=== PATIENT | female | born 1945 | race Caucasian/White ===

== ENCOUNTER → 2017-01-08 16:47 | Outpatient (CLI) | payer MEDICARE ==
[2015-02-14 05:51] VITALS: BMI 28.0
[~2017-01-08 16:47] MED LIST: ASPIRIN EC81 M1 PO; CARBO/LEVO; CITRACAL + D E1 EACH PO; CO Q-10200 MG PO; FOLATE0.4 MG PO; LOVAZA1 G PO; MIRAPEX1.5 MG PO; PRILOSEC20 MG PO; VITAMIN B COMPL1 TAB PO; VITAMIN D250000 UNIT PO; WELLBUTRIN SR150 MG PO; ZOCOR40 MG PO
== END | disposition home or self-care (01) ==
LOC: D.MAMMO 01-07 09:45
DX: Z12.31 Encounter for screening mammogram for malignant neoplasm of breast (principal)

== ENCOUNTER → 2017-02-05 17:05 | Outpatient (CLI) | payer MEDICARE ==
[2015-02-14 05:51] VITALS: BMI 28.0
== END | disposition home or self-care (01) ==
LOC: D.MAMMO 14:00
DX: R92.8 Other abnormal and inconclusive findings on diagnostic imaging of breast (principal)

== ENCOUNTER → 2018-01-27 20:56 | Outpatient (CLI) | payer MEDICARE ==
[2015-02-14 05:51] VITALS: BMI 28.0
== END | disposition home or self-care (01) ==
LOC: D.MAMMO 10:45
DX: Z12.31 Encounter for screening mammogram for malignant neoplasm of breast (principal)

== ENCOUNTER 2019-08-09 08:00 | Outpatient (CLI) | payer MEDICARE ==
[2015-02-14 05:51] VITALS: BMI 28.0
== END 2019-08-09 23:59 | disposition home or self-care (01) ==
LOC: D.MAMMO 08:00
PROVIDERS: ATTEND Family Medicine
DX: Z12.31 Encounter for screening mammogram for malignant neoplasm of breast (principal)

== ENCOUNTER → 2019-09-08 11:42 | Outpatient (CLI) | payer MEDICARE ==
[2015-02-14 05:51] VITALS: BMI 28.0
--- NOTE | 2019-09-20 08:48 | ST ---
PATIENT:BRIAN FUNG MEDICAL RECORD: [id number] SEX: F LOCATION:[facility] ORDER #: ADMISSION DATE: 09/08/19 AGE OF PATIENT: 74 REFERRING PHYSICIAN: INTERPRETING PHYSICIAN: MARYSE LR MD DATE OF SERVICE: 09/08/2019 Baseline ECG is normal. Exercised for 6 minutes on Aurelio protocol. Maximum heart rate 135 beats per minute, greater than 85% maximum predicted. No ECG changes for ischemia. No symptoms of ischemia. Normal blood pressure response to exercise. No arrhythmias noted. Good exercise tolerance for age. TRANSINT:[id number] Voice Confirmation ID: [id number] DOCUMENT ID: [id number] MRAYSE LR MD at 0848 CC: [id number] DICTATION DATE: 09/15/191400 CLAIM CLERK: 09/15/192054 DEP CLI 09/08/19 [id number] [place] [address]
== END | disposition home or self-care (01) ==
LOC: D.HCCARDIO 11:42
PROVIDERS: ATTEND Internal Medicine Interventional Cardiology
DX: I20.9 Angina pectoris, unspecified (principal)